=== PATIENT | male | born 1960 | race Caucasian/White ===

== ENCOUNTER → 2017-07-28 | Day surgery (SDC) | payer BC ==
[~2017-07-28] MED LIST: AMLO5TAB2 PO; HYDROmorphone 2 MG/ML VIAL IV PRN; IV RINGERS,LACTATED 1000ML 1,000 ML IV SCH; LEVO125T PO; LIDOCAINE 1% PF 2 ML VIAL. ID PRN; LIDOCAINE 2% PF Vial for OR 5 ML VIAL. ONE; MORPHINE SULFATE 2 MG/ML DISP.SYRIN. IV PRN; ONDANSETRON PF 4 MG/2 ML VIAL. IV PRN; PROCHLORPERAZINE 10 MG/2 ML VIAL. IV PRN; PROPOFOL 40 ML IV ONE; fentaNYL PF VIAL 100 MCG/2 ML VIAL IV PRN
[2017-07-28 08:25] VITALS: BP 107/64
--- NOTE | 2017-07-31 13:20 | PATHOLOGY ---
PATHOLOGY REPORT * * * * * * * * FINAL DIAGNOSIS: Colorectal biopsy, rectal polyp: - Hyperplastic polyp. COMMENT: There are no adenomatous changes or evidence of malignancy. (JPM:mml; 07/31/2017) REPORT ELECTRONICALLY SIGNED BY: Helio Tam M.D. DATE/TIME: 07/31/2017 13:19 * * * * * * * * GROSS PATHOLOGY: Received in formalin labeled "Marshall Santos, rectal polyp BX," are 2 segments of hui soft tissue measuring 0.6 x 0.2 x 0.2 cm in aggregate dimensions and ranging from 0.2 to 0.4 cm in maximum dimension. The specimen is submitted entirely in cassette A1. (TSD; 07/28/2017) INITIAL CPT CODE(S): A; 63095 Professional services performed [place] [facility] [place] [address] Technical services performed by [facility] at [address] [place] [address], [facility] [address], [place] [address]. SPECIMEN(S) RECEIVED: A.Rectal polyp CLINICAL HISTORY: Screening; polyp PATIENT: MARSHALL SANTOS /AGE: 705/07/1960 (Age: 57) PATIENT #: [id number] ALT CASE #: SPECIMEN COLLECTION DATE: 07/28/2017 SPECIMEN RECEIVED DATE: 07/28/2017 [facility] - [address] [place] [address] - PHONE: [phone] * * * END OF REPORT * * *
== END | disposition home or self-care (01) ==
LOC: ENDOS 06:25
PROVIDERS: ATTEND Internal Medicine Gastroenterology
DX: Z12.11 Encounter for screening for malignant neoplasm of colon (principal); K62.1 Rectal polyp; K64.0 First degree hemorrhoids; I10 Essential (primary) hypertension; E78.00 Pure hypercholesterolemia, unspecified; E03.9 Hypothyroidism, unspecified; M19.91 Primary osteoarthritis, unspecified site; Z80.8 Family history of malignant neoplasm of other organs or systems; Z72.0 Tobacco use
CPT/HCPCS: 45380; 88305; J2704; J2001

== ENCOUNTER 2017-11-05 13:38 | Emergency (ER) | payer BC | END 2017-11-05 16:29 | disposition home or self-care (01) | LOC: ER 13:38 | DX: S16.1XXA Strain of muscle, fascia and tendon at neck level, initial encounter (principal); M79.606 Pain in leg, unspecified; R51 Headache; I10 Essential (primary) hypertension; E03.9 Hypothyroidism, unspecified; G89.29 Other chronic pain; F17.210 Nicotine dependence, cigarettes, uncomplicated; F12.10 Cannabis abuse, uncomplicated; Z88.0 Allergy status to penicillin; W01.0XXA Fall on same level from slipping, tripping and stumbling without subsequent striking against object, initial encounter; Y93.89 Activity, other specified; Y92.009 Unspecified place in unspecified non-institutional (private) residence as the place of occurrence of the external cause; Y99.8 Other external cause status | CPT/HCPCS: 70450; 72125; 99284-25 ==

== ENCOUNTER 2021-07-01 15:31 | Emergency (ER) | payer BC ==
[~2021-07-01] VITALS: Ht 180.3 cm; Wt 97.3 kg
[~2021-07-01 15:31] MED LIST changes: +AMLO-186 PO; -AMLO5TAB2 PO; -HYDROmorphone 2 MG/ML VIAL IV PRN; -IV RINGERS,LACTATED 1000ML 1,000 ML IV SCH; -LIDOCAINE 1% PF 2 ML VIAL. ID PRN; -LIDOCAINE 2% PF Vial for OR 5 ML VIAL. ONE; -MORPHINE SULFATE 2 MG/ML DISP.SYRIN. IV PRN; -ONDANSETRON PF 4 MG/2 ML VIAL. IV PRN; -PROCHLORPERAZINE 10 MG/2 ML VIAL. IV PRN; -PROPOFOL 40 ML IV ONE; -fentaNYL PF VIAL 100 MCG/2 ML VIAL IV PRN
[2021-07-01 17:01] VITALS: BP 111/79
--- NOTE | 2021-07-01 18:55 | RAD ---
CT HEAD AND C-SPINE WO History: Reason: fall, hit back of head and neck, numbness to the LUE / Spl. Instructions: / History : Pain Comparison: November 05, 2017 Technique: Noncontrast CT imaging was performed of the head and cervical spine. Coronal and sagittal reconstructions were performed. Exposure: One or more of the following individualized dose reduction techniques were utilized for thi s examination: 1. Automated exposure control 2. Adjustment of the mA and/or kV according to patient size 3. Use of iterative reconstruction technique. Findings: Head CT: No intracranial hemorrhage. No mass effect. No hydrocephalus. Mild foci of decreased attenuation within the hemispheric white matter, most often due to chronic sal rovascular ischemia. Imaged orbits are unremarkable. Ethmoid and sphenoid sinus mucosal thickening. Mastoid air cells are clear. No acute calvarial fractu re. Cervical spine CT: Normal vertebral body height and alignment. No fracture. Moderate degenerative disc changes most prominent C3-C4, C5-C6 and C6-C7. Facet arthropathy, left gre ater than right. No high-grade canal stenosis. Multilevel neuroforaminal narrowing. Soft tissues unremarkable. Impression: Head CT: 1. No acute intracranial abnormality. Cervical spine CT: 1. No acute fracture or subluxation of the cervical spine. 2. Moderate multilevel cervical spondylosis. Electronically signed by: Suraj Mukherjee DO (07/01/2021 6:52 PM) [facility]
[2021-07-01] MEDS ORDERED: CYCL10TA2 PO (19:14)
[2021-07-01] MEDS ORDERED: GABA-585 PO (19:14)
--- NOTE | 2021-07-01 19:15 | PHYS DOC ---
Past Medical History Past Medical History: Hypertension, Hypothyroid, Other Additional Past Medical Histor: CHRONIC BACK PAIN (CHARLA RANGEL MANAGER BILINGUAL) Past Surgical History: Other Additional Past Surgical Histo: RIGHT SHOULDER (CHARLA RANGEL MANAGER BILINGUAL) Smoking Status: Current Some Day Smoker Alcohol Use: Rarely Drug Use: Marijuana (CHARLA RANGEL MANAGER BILINGUAL) General Adult EDM: Chief Complaint: NECK PAIN HPI: HPI: Patient is a 61 year old male with history of hypertension, hypothyroidism who presents the ED today complaining of throbbing 7 out of 10 posterior head pain, neck pain and numbness to the left upper extremity symptoms began 1 week ago after he fell hitting the back of his neck on a chair. Patient denies any loss of consciousness. States most of his symptoms are intermittent including the pain and the numbness to the left upper extremity. He states the numbness is actually relieved on range of motion to the left upper extremity. (CHARLA RANGEL MANAGER BILINGUAL) Review of Systems: Review of Systems: Constitutional: Denies fever or chills. [] Eyes: Denies change in visual acuity. [] HENT: Denies nasal congestion or sore throat. [] Respiratory: Denies cough or shortness of breath. [] Cardiovascular: Denies chest pain or edema. [] GI: Denies abdominal pain, nausea, vomiting, bloody stools or diarrhea. [] : Denies dysuria. [] Musculoskeletal: Denies back pain or joint pain. [] Integument: Denies rash. [] Neurologic: Reports posterior head pain, reports numbness of the left upper extremity, denies any weakness Psychiatric: Denies depression or anxiety. [] (CHARLA RANGEL MANAGER BILINGUAL) Heart Score: C/O Chest Pain: N/A Risk Factors: Risk Factors: DM, Current or recent (<one month) smoker, HTN, HLP, family history of CAD, obesity. Risk Scores: Score 0 - 3: 2.5% MACE over next 6 weeks - Discharge Home Score 4 - 6: 20.3% MACE over next 6 weeks - Admit for Clinical Observation Score 7 - 10: 72.7% MACE over next 6 weeks - Early Invasive Strategies (CHARLA RANGEL MANAGER BILINGUAL) Allergies: Allergies: Allergies Coded Allergies Type Severity Reaction Last Updated Verified Penicillins Allergy Intermediate 07/28/17 Yes (CHARLA RANGEL MANAGER BILINGUAL) Physical Exam: PE: Constitutional: Well developed, well nourished, no acute distress, non-toxic appearance. [] HENT: Normocephalic, atraumatic, bilateral external ears normal, oropharynx moist, no oral exudates, nose normal. [] Eyes: PERRLA, EOMI, conjunctiva normal, no discharge. [] Neck: Normal range of motion, diffuse paraspinal muscle tenderness to posterior cervical spine, no midline cervical spine, supple, no stridor. [] Cardiovascular:Heart rate regular rhythm, no murmur [] Lungs & Thorax: Bilateral breath sounds clear to auscultation [] Abdomen: Bowel sounds normal, soft, no tenderness, no masses, no pulsatile masses. [] Skin: Warm, dry, no erythema, no rash. [] Back: No tenderness, no CVA tenderness. [] Extremities: No tenderness, no cyanosis, no clubbing, ROM intact, no edema. [] Neurologic: Alert and oriented X 3, normal motor function, normal sensory function, no focal deficits noted. Cranial nerves II through XII intact Psychologic: Affect normal, judgement normal, mood normal. [] (CHARLA RANGEL MANAGER BILINGUAL) Current Patient Data: Vital Signs: Vital Signs Date Time Temp Pulse Resp B/P (MAP) Pulse Ox O2 Delivery O2 Flow Rate FiO2 07/01/21 17:01 98.5 84 16 111/79 (90) 96 Room Air 98.5 (CHARLA RANGEL MANAGER BILINGUAL) EKG: EKG: [] (CHARLA RANGEL MANAGER BILINGUAL) Radiology/Procedures: Radiology/Procedures: []PROCEDURE: CT HEAD AND CERVICAL SPINE WO CT HEAD AND C-SPINE WO History: Reason: fall, hit back of head and neck, numbness to the LUE / Spl. Instructions: / History: Pain Comparison: November 05, 2017 Technique: Noncontrast CT imaging was performed of the head and cervical spine. Coronal and sagittal reconstructions were performed. Exposure: One or more of the following individualized dose reduction techniques were utilized for this examination: 1. Automated exposure control 2. Adjustment of the mA and/or kV according to patient size 3. Use of iterative reconstruction technique. Findings: Head CT: No intracranial hemorrhage. No mass effect. No hydrocephalus. Mild foci of decreased attenuation within the hemispheric white matter, most often due to chronic microvascular ischemia. Imaged orbits are unremarkable. Ethmoid and sphenoid sinus mucosal thickening. Mastoid air cells are clear. No acute calvarial fracture. Cervical spine CT: Normal vertebral body height and alignment. No fracture. Moderate degenerative disc changes most prominent C3-C4, C5-C6 and C6-C7. Facet arthropathy, left greater than right. No high-grade canal stenosis. Multilevel neuroforaminal narrowing. Soft tissues unremarkable. Impression: Head CT: 1. No acute intracranial abnormality. Cervical spine CT: 1. No acute fracture or subluxation of the cervical spine. 2. Moderate multilevel cervical spondylosis. Electronically signed by: Suraj Mukherjee DO (07/01/2021 6:52 PM) [facility] DICTATED and SIGNED BY: SURAJ MUKHERJEE DO DATE: 07/01/21 [id number] (CHARLA RANGEL APRN) Course & Med Decision Making: Course & Med Decision Making Pertinent Labs and Imaging studies reviewed. (See chart for details) This is a 61-year-old male patient presenting to the ED today to be evaluated for fall he had a week ago. Patient is complaining of posterior head and neck pain as well as numbness in the left upper extremity. CT of the head and cervical spine are negative for any acute findings. Patient has normal vitals. To be discharged to home on gabapentin, and Flexeril. Follow-up with PCP as well as the neurosurgeon provided. (CHARLA RANGEL APRN) Course & Med Decision Making I have reviewed and was available for consultation in the emergency department for this patient that was seen by midlevel provider. Agree with plan. Devante Morse DO (DEVANTE MORSE DO) Dagmar Disclaimer: Dagmar Disclaimer: This electronic medical record was generated, in whole or in part, using a voice recognition dictation system. (CHARLA RANGEL APRN) Departure Departure Impression: Primary Impression: Fall from standing Qualified Codes: W19.XXXA - Unspecified fall, initial encounter Additional Impressions: Acute cervical sprain Qualified Codes: S13.9XXA - Sprain of joints and ligaments of unspecified parts of neck, initial encounter Cervical radiculopathy Head contusion Qualified Codes: S00.03XA - Contusion of scalp, initial encounter Disposition: HOME / SELF CARE / HOMELESS Condition: STABLE Referrals: NO PCP (PCP) SHELDON ARANA MD follow up in one week Patient Instructions: Cervical Radiculopathy, [id number], Contusion Additional Instructions: You were evaluated in the emergency room. Your CT of the head and cervical spine are negative for any acute findings. We encourage you to continue exercising your upper extremity as well as the neck. We will sent prescription for pain medicine to your pharmacy. Take the medicine as prescribed. Come back to the ED at any point symptoms worsen Scripts Gabapentin (GABAPENTIN ) 100 Mg Capsule 100 MG PO TID for NEUROGENIC PAIN, #20 CAP Prov: CHARLA RANGEL MANAGER BILINGUAL 07/01/21 Cyclobenzaprine Hcl (CYCLOBENZAPRINE HCL) 10 Mg Tablet 1 TAB PO TID, #30 TAB Prov: CHARLA RANGEL MANAGER BILINGUAL 07/01/21 CHARLA RANGEL APRN Jul 01, 2021 19:15 DEVANTE MORSE DO Jul 01, 2021 22:58
== END 2021-07-01 19:23 | disposition home or self-care (01) ==
LOC: ER 15:31
DX: S13.9XXA Sprain of joints and ligaments of unspecified parts of neck, initial encounter (principal); S00.03XA Contusion of scalp, initial encounter; M54.12 Radiculopathy, cervical region; I10 Essential (primary) hypertension; E03.9 Hypothyroidism, unspecified; G89.29 Other chronic pain; F17.200 Nicotine dependence, unspecified, uncomplicated; Z88.0 Allergy status to penicillin; W18.39XA Other fall on same level, initial encounter; Y93.89 Activity, other specified; Y92.89 Other specified places as the place of occurrence of the external cause; Y99.8 Other external cause status
CPT/HCPCS: 70450; 72125; 99285-25